=== PATIENT | female | born 2000 | race Caucasian/White ===

== ENCOUNTER 2021-01-24 18:06 | Emergency (ER) | payer OTHER, MEDICAID ==
[~2021-01-24] VITALS: Ht 167.7 cm; Wt 125.2 kg
--- NOTE | 2021-01-24 19:07 | ED GU-Female ---
General Chief Complaint: OB < 20 WEEKS Stated Complaint: VAGINAL BLEEDING, CRAMPS Nursing Triage Note: PT AMB TO [facility] WITH GRANDMA WITH COMPLAINT OF MISCARRIAGE. STATES WAS TOLD LAST WEEK THAT HER BABY HAD NO HEARTBEAT. STATES SHE CHOSE TO PASS FETUS ON HER OWN. STATES SHE PASSED TODAY, AND IS HAVING WORSENING CRAMPING/BLEEDING. PT WAS APPROX 9 WEEKS ALONG. UNKNOWN LMP. Source: patient, family Exam Limitations: no limitations History of Present Illness Date Seen by Provider: Jan 24, 2021 Time Seen by Provider: 18:58 Initial Comments Patient is a 20-year-old female who presents to the emergency department today with a chief complaint of heavy vaginal bleeding for the last 24 hours. Patient states today she has had significant cramping and bleeding, pain to the point that she cannot stand up and walk. Patient states that she was approximately 9 weeks and 3 days on the when she had an OB appointment with Dr. Esparza. She states that they could not find a heartbeat and she elected to try and pass the miscarriage "naturally". Patient states she has been taking 800 mg ibuprofen without any relief of symptoms. She took one of her grandmothers 7.5 hydrocodone's today and still had pain. She complains of some urinary frequency without dysuria. She has lower abdominal pain and cramping. No abnormal vagin al discharge. Grandmother states that she passed "the sac" this morning. She states she has been changing her pads multiple times an hour. Denies lightheadedness or dizziness or presyncopal symptoms. Unknown LMP. . All other review of systems reviewed and negative except as stated. Timing/Duration: week, getting worse Severity/Quality: cramping Location: suprapubic Radiation: none Activities at Onset: none Associated Symptoms: abdominal pain, urinary frequency, other (vaginal bleeding) Allergies and Home Medications Allergies Coded Allergies: Penicillins (Verified Allergy, Unknown, 01/24/21) Patient Home Medication List Home Medication List Reviewed: Yes Review of Systems Review of Systems Constitutional: see HPI EENTM: no symptoms reported Respiratory: no symptoms reported Cardiovascular: no symptoms reported Gastrointestinal: abdominal pain Genitourinary: frequency : No Musculoskeletal: no symptoms reported Skin: no symptoms reported Psychiatric/Neurological: No Symptoms Reported All Other Systemes Reviewed Negative Unless Noted: Yes Past Rygoovy-Tomfwd-Jftczh Hx Patient Social History Tobacco Use?: No Use of E-Cig and/or Vaping dev: Yes Substance use?: No Alcohol Use?: No Pt feels they are or have been: No Immunizations Up To Date Influenza Vaccine Up-to-Date: No; Not Current Physical Exam Vital Signs Vital Signs - First Documented 01/24/21 18:26 Temp 36.5 Pulse 86 Resp 20 B/P (MAP) 130/85 (100) Pulse Ox 100 O2 Delivery Room Air Capillary Refill : Height, Weight, BMI Height: '" Weight: lbs. oz. kg; 44.00 BMI Method: General Appearance: WD/WN, no apparent distress Cardiovascular: regular rate, rhythm (90's) Respiratory: lungs clear, normal breath sounds, no respiratory distress, no accessory muscle use Gastrointestinal: normal bowel sounds, non tender, soft Extremities: normal range of motion Neurologic/Psychiatric: alert, normal mood/affect, oriented x 3 Skin: normal color, warm/dry Progress/Results/Core Measures Suspected Sepsis SIRS Temperature: Pulse: 86 Respiratory Rate: 20 Laboratory Tests 01/24/21 19:28: White Blood Count 9.4 Blood Pressure 130 /85 Mean: 100 Laboratory Tests 01/24/21 19:28: Platelet Count 185 Results/Orders Lab Results Laboratory Tests Test 01/24/21 19:28 Range/Units White Blood Count 9.4 4.3-11.0 10^3/uL Red Blood Count 3.85 3.80-5.11 10^6/uL Hemoglobin 11.0 L 11.5-16.0 g/dL Hematocrit 33 L 35-52 % Mean Corpuscular Volume 86 80-99 fL Mean Corpuscular Hemoglobin 29 25-34 pg Mean Corpuscular Hemoglobin Concent 33 32-36 g/dL Red Cell Distribution Width 13.2 10.0-14.5 % Platelet Count 185 130-400 10^3/uL Mean Platelet Volume 11.4 9.0-12.2 fL Immature Granulocyte % (Auto) 0 % Neutrophils (%) (Auto) 75 42-75 % Lymphocytes (%) (Auto) 17 12-44 % Monocytes (%) (Auto) 6 0-12 % Eosinophils (%) (Auto) 2 0-10 % Basophils (%) (Auto) 0 0-10 % Neutrophils # (Auto) 7.0 1.8-7.8 10^3/uL Lymphocytes # (Auto) 1.6 1.0-4.0 10^3/uL Monocytes # (Auto) 0.6 0.0-1.0 10^3/uL Eosinophils # (Auto) 0.2 0.0-0.3 10^3/uL Basophils # (Auto) 0.0 0.0-0.1 10^3/uL Immature Granulocyte # (Auto) 0.0 0.0-0.1 10^3/uL My Orders Orders - TYLER GORMAN MD Cbc With Automated Diff (01/24/21 19:03) Ketorolac Injection (Toradol Injection) (01/24/21 19:15) Medications Given in ED Current Medications Medications Dose Ordered Sig/Og Route Start Time Stop Time Status Last Admin Dose Admin Ketorolac Tromethamine 60 mg ONCE ONCE IM 01/24/21 19:15 01/24/21 19:16 DC 01/24/21 19:37 60 MG Vital Signs/I&O 01/24/21 18:26 Temp 36.5 Pulse 86 Resp 20 B/P (MAP) 130/85 (100) Pulse Ox 100 O2 Delivery Room Air Capillary Refill : Blood Pressure Mean: 100 Progress Note : Time: 20:07 Progress Note Patient states she is feeling much better after the Toradol injection. Her hemoglobin is noted to be 11. Vital signs are stable. I advised her if she has any further concerns that she should follow-up with Dr. Esparza or invited her to return to the emergency department for any new, concerning or emergent co mplaints. Patient verbalized understanding she is comfortable with the plan of care. We will send her home with a take-home pack of hydrocodone this evening. All questions are sought and answered. Departure Impression Primary Impression: Abdominal pain Qualified Codes: R10.30 - Lower abdominal pain, unspecified Additional Impression: Miscarriage Disposition: 01 HOME, SELF-CARE Condition: Stable Departure-Patient Inst. Decision time for Depature: 20:08 Referrals: [facility]/JEVON MCGOVERN DO Patient Instructions: Miscarriage (DC) Add. Discharge Instructions: Drink plenty of fluids so that you stay well-hydrated. Continue 800 mg ibuprofen, with food every 8 hours as needed for cramping and pain. The hydrocodone can be taken every 6 hours. Keep in mind that this may make you sleepy. Do not drive and take this medication. Return to the emergency room for any new, concerning or emergent complaints. TYLER GORMAN MD Jan 24, 2021 19:07
[2021-01-24] MEDS ORDERED: KETOROLAC 60 MG/2 ML VIAL IM ONE (19:15)
[2021-01-24 19:34] LABS: BASOPHILS % (AUTO) 0 % (0-10); EOSINOPHILS # (AUTO) 0.2 10^3/uL (0.0-0.3); EOSINOPHILS % (AUTO) 2 % (0-10); HEMATOCRIT 33 % (35-52); LYMPHOCYTES # (AUTO) 1.6 10^3/uL (1.0-4.0); LYMPHOCYTES % (AUTO) 17 % (12-44); MEAN CORPUSCULAR HEMOGLOBIN 29 pg (25-34); MEAN CORPUSCULAR HGB CONC 33 g/dL (32-36); MEAN CORPUSCULAR VOLUME 86 fL (80-99); MEAN PLATELET VOLUME 11.4 fL (9.0-12.2); MONOCYTES # (AUTO) 0.6 10^3/uL (0.0-1.0); MONOCYTES % (AUTO) 6 % (0-12); NEUTROPHILS % (AUTO) 75 % (42-75); PLATELET COUNT 185 10^3/uL (130-400); WHITE BLOOD COUNT 9.4 10^3/uL (4.3-11.0)
[2021-01-24 20:29] VITALS: BP 124/79
== END 2021-01-24 20:33 | disposition home or self-care (01) ==
LOC: EDUNIT# 18:06 → ER 18:08
DX: O03.9 Complete or unspecified spontaneous abortion without complication (principal)
CPT/HCPCS: 36415; 85025; 99282